=== PATIENT | male | born 1970 | race Caucasian/White ===

== ENCOUNTER 2021-11-02 17:29 | Emergency (ER) | payer OTHER, SELFPAY ==
[2021-11-02 17:30] VITALS: BP 124/81; PULSE 84; RESP 24; TEMP 35.9; O2SAT 91; BMI 26.6
--- NOTE | 2021-11-02 18:23 | EKG12_ITS ---
Test Reason : DYSRHYTHMIA Blood Pressure : / mmHG Vent. Rate : 070 BPM Atrial Rate : 070 BPM P-R Int : 126 ms QRS Dur : 086 ms QT Int : 358 ms P-R-T Axes : 068 021 021 degrees QTc Int : 386 ms Normal sinus rhythm Nonspecific T wave abnormality Abnormal ECG Confirmed by LEON JARRELL, DEREK ([id number]), news editor BRIELLE KNIGHT ([id number]) on 11/04/2021 9:57:06 AM Referred By: ITALIA Confirmed By:DEREK QUINTERO MD
--- NOTE | 2021-11-02 18:25 | EX.ED.DYSGE1 ---
HPI History of Present Illness Chief Complaint: Shortness of Breath Informant: patient and spouse/S.O. Onset/Context/Timing Onset: Days Context: Gradual Onset Narrative Narrative: Patient has been ill for the past 1 week. He reports cough and congestion. Over the past 2 days he had increasing shortness of breath. Today he was standing in the kitchen when his got home from work and he stated he was too short of breath to walk into the other room. Neighbor came over with a pulse ox and said that his reading was 87%. Patient denies fever or chills. He has had cough with occasional sputum production. He did have some posttussive emesis earlier today. He reports chest soreness from coughing, otherwise no chest pain. [facility] Medical History Hypertension Home Medications esomeprazole magnesium [Nexium] 40 mg PO BID 08/20/13 [History Last Taken Unknown] oxycodone-acetaminophen 1 - 2 tab PO Q6H PRN PRN #20 tab 08/20/13 [Rx Last Taken Unknown] tamsulosin 0.4 mg PO BID 4 Days capsule 08/20/13 [Rx Last Taken Unknown] cyclobenzaprine 10 mg PO TID PRN #20 tablet 09/19/13 [Rx Last Taken Unknown] hydrocodone-acetaminophen 1 - 2 tab PO Q4H PRN PRN #20 tablet 09/19/13 [Rx Last Taken Unknown] lisinopril 5 mg PO DAILY 09/19/13 [History Last Taken Unknown] naproxen 500 mg PO BID PRN PRN #20 tab 09/19/13 [Rx Last Taken Unknown] etodolac 300 mg PO TIDCM #30 capsule 09/12/15 [Rx Last Taken Unknown] apixaban [Eliquis] 5 mg PO BID #74 tab 11/02/21 [Rx Last Taken Unknown] Allergy/AdvReac Type Severity Reaction Status Date / Time No Known Allergies Allergy Verified 11/02/21 17:33 Social History Smoking Status: Never smoker ROS ROS ED Constitutional Constitutional ED: Denies chills or fever(s) Eyes Eyes: Denies change in vision ENT ENT ED: Denies sore throat Cardiovascular Cardiovascular: Reports chest pain Respiratory/Chest Respiratory/Chest: Reports cough, dyspnea and sputum Gastrointestinal Gastrointestinal: Denies abdominal pain, diarrhea, nausea or vomiting Genitourinary Genitourinary ED: Denies dysuria Musculoskeletal Musculoskeletal: Denies back pain Integumentary Denies rash Neurologic Neurologic: Denies headache(s) or weakness Allergic/Immunologic Allergic/Immunologic ED: Denies urticaria EXAM Physical Exam Const Vital Signs: 11/02/21 17:30 11/02/21 19:03 Temperature 96.7 F L Temperature Source Temporal Pulse Rate 84 Respiratory Rate 24 H Respiratory Effort Normal Respiratory Depth Normal Respiratory Pattern Normal Blood Pressure 124/81 H Blood Pressure Mean 95 Pulse Ox 91 Oxygen Delivery Method Room Air Positive well nourished and well developed General Appearance ED: well developed HEENT Reports normocephalic and head/scalp atraumatic Eyes PERRL and EOMs intact bilaterally Neck supple Chest Wall inspection of chest normal and palpation of chest normal Resp normal respiratory effort and clear to auscultation bilaterally Cardio regular rate and regular rhythm GI non-tender Palpation: soft Extremity normal to inspection Neuro oriented x3 and no sensory deficits noted Sensorium / Orientation: alert Motor Exam: strength 5/5 throughout Psych mental status grossly normal Skin no rashes or lesions noted MDM MDM MDM Narrative Medical decision making narrative: EKG, chest x-ray, lab work obtained. Rapid Covid test ordered. Lab Data Attestation: I reviewed the patient's lab results. Labs: Laboratory Results - last 24 hr 11/02/21 11/02/21 11/02/21 18:55 18:55 18:55 WBC 6.2 RBC 5.12 Hgb 15.8 Hct 46.3 MCV 90.4 MCH 30.9 MCHC 34.1 RDW Std Deviation 44.4 H RDW Coeff of Ruel 13.4 Plt Count 189 MPV 12.2 H Immature Gran % (Auto) 0.800 Neut % (Auto) 68.2 Lymph % (Auto) 17.4 L Bland % (Auto) 12.2 H Eos % (Auto) 1.1 Baso % (Auto) 0.3 Absolute Neuts (auto) 4.2 Absolute Lymphs (auto) 1.08 Nucleated RBC % 0 D-Dimer Quant (PE/DVT) 0.87 H* Sodium 142 Potassium 3.7 Chloride 106 Carbon Dioxide 29.0 Anion Gap 7 BUN 16 Creatinine 1.44 H Estim Creat Clear Calc 60.01 Est GFR (MDRD) Af Amer 66 Est GFR (MDRD) Non-Af 55 L BUN/Creatinine Ratio 11.1 Glucose 85 Calcium 9.1 Troponin I High Sens 4 B-Natriuretic Peptide 11/02/21 18:55 WBC RBC Hgb Hct MCV MCH MCHC RDW Std Deviation RDW Coeff of Ruel Plt Count MPV Immature Gran % (Auto) Neut % (Auto) Lymph % (Auto) Bland % (Auto) Eos % (Auto) Baso % (Auto) Absolute Neuts (auto) Absolute Lymphs (auto) Nucleated RBC % D-Dimer Quant (PE/DVT) Sodium Potassium Chloride Carbon Dioxide Anion Gap BUN Creatinine Estim Creat Clear Calc Est GFR (MDRD) Af Amer Est GFR (MDRD) Non-Af BUN/Creatinine Ratio Glucose Calcium Troponin I High Sens B-Natriuretic Peptide 5.3 Rapid Covid: Positive Radiography Chest X-Ray - ED: 1 View, Read by ED Physician, Chronic Changes and Right Infiltrate Diagnostic Testing: Clinical Impression(s) from Imaging Studies Chest X-Ray 11/02/21 18:43 IMPRESSION: Possible right lower lobe pneumonia. Clinical correlation recommended Electronically Signed: Marbin Morales MD at 19:41 EST , Service support , Chest CTA 11/02/21 19:57 IMPRESSION: Findings consistent with Covid 19 pneumonia in the dependent portion of the right lower lobe and to lesser extent the right upper and left lower lobes. Pulmonary emboli within the descending interlobar and proximal segmental branches of left lower lobe Electronically Signed: Marbin Morales MD at 21:41 EST , Service support , ADDENDUM: 11/02/219 IMPRESSION: Findings consistent with Covid 19 pneumonia in the dependent portion of the right lower lobe and to lesser extent the right upper and left lower lobes. Pulmonary emboli within the descending interlobar and proximal segmental branches of left lower lobe N.B. : The above Results were Read Back by Marbin Morales MD to Dr. Penelope Cain MD, and understanding confirmed on 11/02/2021 21:52:43 (ET). Electronically Signed: Marbin Morales MD at 21:41 EST , Service support , EKG Initial EKG: Attestation: I personally reviewed and interpreted this EKG as follows: Interpretation: Sinus Rhythm (Sinus at 70 with no acute ischemia. Nonspecific lateral T wave flattening.) Treatment and Re-Evaluation Comments:: Patient's Covid test does return positive. Chest x-ray reveals questionable infiltrate at the right base. Lab work remarkable for elevated D-dimer. CTA of the chest reveals Covid pneumonia as well as PEs in the left lower lobe. Patient is given a dose of Eliquis. Patient is ambulated in the emergency department and his O2 sats remained 91 to 92%. We did discuss monoclonal antibody treatment and he is interested in this. Order has been placed. Return instructions provided. Discharge Plan Triage Chief Complaint: Shortness of Breath ED Provider: Penelope Cain Dx/Rx/DC Orders Clinical Impression: COVID-19, Pulmonary embolism Instructions: Pulmonary Embolism, Coronavirus Disease 2019 (COVID-19): Overview, Coronavirus Disease 2019 (COVID-19): Caring for Yourself or Others Prescriptions: New Eliquis 5 mg tablet 5 mg PO BID Qty: 74 RF: 0 No Action esomeprazole magnesium [Nexium] 40 MG capsule 40 mg PO BID RF: 0 oxycodone-acetaminophen 1 TABLET tablet 1 - 2 tab PO Q6H PRN PRN (Reason: Pain/Anxiety) Qty: 20 RF: 0 tamsulosin 0.4 MG capsule 0.4 mg PO BID 4 Days RF: 0 lisinopril 5 MG tablet 5 mg PO DAILY RF: 0 cyclobenzaprine 10 MG tablet 10 mg PO TID PRN (Reason: Muscle Spasm) Qty: 20 RF: 0 hydrocodone-acetaminophen 1 TABLET tablet 1 - 2 tab PO Q4H PRN PRN (Reason: Pain) Qty: 20 RF: 0 naproxen 500 MG tablet 500 mg PO BID PRN PRN (Reason: Pain) Qty: 20 RF: 0 etodolac 300 MG capsule 300 mg PO TIDCM Qty: 30 RF: 0 Stand Alone Forms: Monoclonal Antibody Referral Primary Care Provider: Kelvin Bernard Referrals: Kelvin Bernard MD [Primary Care Provider] - 1-2 Weeks Disposition Disposition: Home, Self Care
--- NOTE | 2021-11-02 18:43 | RAD_ITS ---
STUDY: X-RAY CHEST REASON FOR EXAM: Male, 51 years old. sob TECHNIQUE: AP portable COMPARISON: None. FINDINGS: Interstitial thickening in the right lower lobe with patchy area of increased density possibly inflammatory.. There is no demonstrated pleural abnormality. Normal size heart. Normal mediastinum and sabas. Normal visualized pulmonary arteries. Normal visualized aortic arch and descending thoracic aorta. Dorsal spine and shoulders demonstrate degenerative change. Normal visualized ribs, and clavicles.. There is no demonstrated abnormality of the visualized soft tissue structures of the upper abdomen. RAD/Chest 1 View (Portable) IMPRESSION: Possible right lower lobe pneumonia. Clinical correlation recommended Electronically Signed: Marbin Morales MD at 19:41 EST , Service support ,
[2021-11-02 19:03] VITALS: O2SAT 96
[2021-11-02 19:41] LABS: Absolute Lymphocyte Count 1.08 X10^3/uL (0.83-4.51); Absolute Neutrophil Count 4.2 X10^3/uL (2.0-7.7); Basophil# 0.02 X10^3/uL; Basophil% 0.3 % (0-1); Eosinophil# 0.07 X10^3/uL; Eosinophils% 1.1 % (0-5); Hematocrit 46.3 % (40-54); Hemoglobin 15.8 g/dL (13.0-16.5); Lymphocyte # 1.08 X10^3/ul (0.83-4.51); Lymphocyte % 17.4 % (19-41); Mean Corp Hgb Conc 34.1 g/dL (32-36); Mean Corpuscular Hgb 30.9 pg (27.0-32.0); Mean Corpuscular Volume 90.4 fL (80-94); Mean Platelet Vol. 12.2 fl (6.2-12.0); Monocyte# 0.76 X10^3/uL; Monocyte% 12.2 % (0-10); NRBC Flagged by Analyzer 0 % (0-5); Neutrophil # 4.23 X10^3/uL (2.7-7.7); Neutrophil % 68.2 % (47-70); Platelet Count 189 K/mm3 (150-450); RBC Distribution Width CV 13.4 % (11.6-14.6); RBC Distribution Width SD 44.4 fl (35.1-43.9); Red Blood Count 5.12 M/mm3 (4.6-6.2); White Blood Count 6.2 K/mm3 (4.4-11.0)
[2021-11-02 19:47] LABS: BNP,B-Type NATRIURETIC PEPTIDE 5.3 pg/mL (0-100)
[2021-11-02 19:49] LABS: Anion Gap 7 (5-15); BUN 16 mg/dL (7-18); BUN/Creat Ratio 11.1 RATIO (10-20); Calcium,Total 9.1 mg/dL (8.5-10.1); Chloride 106 mmol/L (98-107); Creatinine, Serum 1.44 mg/dL (0.70-1.30); EST Glomerular Filtration Rate 55 mL/min (>60); Est Glom Filt Rate - Afr Amer 66 mL/min (>60); Estimated Creatinine Clearance 60.01 ml/min; Glucose 85 mg/dL (74-106); Potassium 3.7 mmol/L (3.5-5.1); Sodium Level 142 mmol/L (136-145); Troponin-I HS 4 pg/mL (3.0-78.0)
[2021-11-02 19:56] LABS: D-Dimer Quantitative (DVT/PE) 0.87 FEU/ug/m (0.27-0.49)
--- NOTE | 2021-11-02 19:57 | CT_ITS ---
We are attempting to reach an attending provider to discuss findings. An addendum with communication details will be sent when the communication is complete. STUDY: CTA CHEST REASON FOR EXAM: Male, 51 years old. sob, covid, elevated d-dimer RADIATION DOSAGE (If Supplied By Facility): CTDIvol = ( 12.09 ) mGy, DLP = ( 497.91 ) mGycm TECHNIQUE: The examination was performed with the intravenous administration of IV 100mL [id number]-[id number]. Post-processing of the angiographic images was performed, with multiplanar reformation and 3D reconstruction. Individualized dose optimization techniques were used for this CT. COMPARISON: None. FINDINGS: Normal enhancement of the main pulmonary artery and right and left pulmonary arteries. There are intraluminal filling defects within the descending interlobar branch of the left pulmonary artery and extension into some of the segmental branches. Normal thoracic aorta and visualized great vessels. There is no demonstrated aortic dissection. Normal heart and pericardium. Normal mediastinum. Normal hilar regions. Normal visualized trachea and bronchi. The lungs are well expanded. There are peripheral groundglass opacities within the dependent portion of the right upper and bilateral lower lobes more severe on the right. Normal pleura. Normal chest wall structures. Normal osseous structures. Normal visualized upper abdomen. CT/CTA Chest W/WO Contrast IMPRESSION: Findings consistent with Covid 19 pneumonia in the dependent portion of the right lower lobe and to lesser extent the right upper and left lower lobes. Pulmonary emboli within the descending interlobar and proximal segmental branches of left lower lobe Electronically Signed: Marbin Morales MD at 21:41 EST , Service support ,
[2021-11-02 22:29] VITALS: BP 127/83; PULSE 102; RESP 18; O2SAT 92
[2021-11-02] MEDS: APIXABAN 5 MG TABLET 10 MG PO (22:29)
== END 2021-11-02 22:30 | disposition home or self-care (01) ==
PROVIDERS: Emergency Provider Emergency Medicine; PCP Family Medicine
DX: U07.1 COVID-19 (principal); I26.99 Other pulmonary embolism without acute cor pulmonale; J12.82 Pneumonia due to coronavirus disease 2019; I10 Essential (primary) hypertension; Z79.01 Long term (current) use of anticoagulants; Z79.899 Other long term (current) drug therapy
CPT/HCPCS: 71045; 71275; 80048; 83880; 84484; 85025; 85379; 87426; 93005; 99285; Q9967; A4216

== ENCOUNTER 2021-11-03 11:58 | Outpatient (CLI) | payer OTHER, SELFPAY ==
[2021-11-03 12:05] VITALS: BP 112/83; PULSE 86; RESP 20; TEMP 36.7; O2SAT 92; BMI 26.6
[2021-11-03] MEDS: 0.9% Saline Lock 10 ML Syringe IV (12:14)
[2021-11-03 12:45] VITALS: BP 113/70; PULSE 72; RESP 16; TEMP 36.8; O2SAT 95
[2021-11-03 13:45] VITALS: BP 115/69; PULSE 70; RESP 16; TEMP 36.7; O2SAT 96
== END 2021-11-03 13:45 | disposition home or self-care (01) ==
LOC: MS3OUT 11:59 → MS3 11:59
PROVIDERS: PCP Family Medicine; Referring Provider Emergency Medicine; Visit Provider Emergency Medicine
DX: Z23 Encounter for immunization (principal); U07.1 COVID-19
CPT/HCPCS: J7050; M0245; Q0245; A4216